=== PATIENT | male | born 1975 | race Caucasian/White ===

== ENCOUNTER 2023-05-25 00:22 | Inpatient (IN) | payer BC, OTHER ==
[2023-05-25] MEDS ORDERED: IV FLUID CONTINUATION 700 ML IV ONE (00:32)
--- NOTE | 2023-05-25 00:33 | ED ---
Medical Decision Making - Medical Decision Making This patient is 47-year-old man coming as transfer from [facility] to be a [facility] patient. The Snow Groomer was activated and the patient went directly to [facility] G[facility] without stopping for ER evaluation. Disposition Clinical Impression: Ventricular fibrillation Disposition: ADMITTED IP TO THIS HOSP Condition: Critical Is patient prescribed a controlled substance at d/c from ED?: No Referrals: None,Stated [Primary Care Provider] - 1-2 days
[2023-05-25] MEDS ORDERED: HEPARIN SODIUM 1,000 UN/ML (10ML VL) ONE (00:44)
[2023-05-25] MEDS ORDERED: fentaNYL (PF) 50 MCG/ML 2 ML AMP ONE (00:44)
[2023-05-25] MEDS ORDERED: LIDOCAINE 1% PF 10 MG/ML (5 ML AMP) SQ ONE (00:48)
[2023-05-25] MEDS ORDERED: fentaNYL (PF) 50 MCG/ML 2 ML AMP IVP ONE (00:48)
[2023-05-25] MEDS ORDERED: VERAPAMIL SYRINGE (5 MG/10 ML) INTRAARTER ONE (00:50)
[2023-05-25] MEDS ORDERED: CLOPIDOGREL 75 MG TAB ONE (00:51)
[2023-05-25] MEDS ORDERED: PRASUGREL 10 MG TAB ONE ×4 (00:53→00:56)
[2023-05-25] MEDS ORDERED: PRASUGREL 10 MG TAB PO ONE (00:58)
[2023-05-25] MEDS ORDERED: DEXTROSE 5% IN WATER 100 ML with AMIODARONE 150 MG IV ONE ×4 (01:02)
[2023-05-25] MEDS ORDERED: IOPAMIDOL-370 100ML BTL INJ ONE ×3 (01:12→02:03)
[2023-05-25] MEDS: NITROGLYCERIN 1000MCG/10ML SYRINGE INTRACORON ONE ×2 (01:45→01:56)
[2023-05-25] MEDS ORDERED: NITROGLYCERIN 1000MCG/10ML SYRINGE INTRACORON ONE (01:45)
[2023-05-25] MEDS ORDERED: TIROFIBAN 12.5MG-250ML NS 250 ML IV ONE (02:00)
[2023-05-25] MEDS ORDERED: TIROFIBAN BOLUS 12.5MG/250 ML BAG IV ONE (02:09)
[2023-05-25] MEDS ORDERED: SODIUM CHLORIDE 0.9% 1,000 ML IV ONE (02:13)
[2023-05-25] MEDS ORDERED: ATROPINE SULFATE 0.1 MG/ML 10ML SYRINGE IV PRN (02:20)
[2023-05-25] MEDS ORDERED: MAG HYDROX/AL HYDROX/SIMETH 30 ML CUP PO PRN (02:20)
[2023-05-25] MEDS ORDERED: ZOLPIDEM 5 MG TAB PO PRN (02:20)
[2023-05-25] MEDS ORDERED: NITROGLYCERIN SL TABS 0.4 MG TAB SUBLINGUAL PRN (02:20)
[2023-05-25] MEDS ORDERED: RX INFO: IV CONTRAST WAS GIVEN 1 EACH MISC MISCELLANE PRN (02:20)
--- NOTE | 2023-05-25 02:27 | P.CRDCN ---
History of Present Illness Consult date: 05/25/23 History of present illness: History of Present Illness: The patient is a 47-year-old male with no prior history of cardiac disease does not follow with a physician does not take any medications who presented to the emergency room at [facility] with symptoms of chest discomfort that started about 10 hours before, worse on presentation. On presentation he had cardiac arrest with ventricular fibrillation requiring cardioversion 2 and his EKG showed ST segment elevation inferiorly. Patient was transferred. On arrival he was still having chest and back discomfort. According to him he had no prior history of cardiac disease. He denies any PND, orthopnea or peripheral edema. He denies any prior history of syncope. He does not take any medications and smokes on a regular basis. He has a family history of premature CAD in his father Medications: None Review of Systems: Respiratory: No history of asthma, bronchitis or recent cough. GI: No nausea or vomiting . No history of peptic ulcer disease. No recent GI bleed. : No hematuria or dysuria. Nervous System: No stroke or seizure. Physical Examination: 47-year-old male, alert and oriented in mild to moderate discomfort,Blood pressure 95/70, Heart rate 70 Head: Normocephalic. Eyes: Sclerae nonicteric. Neck: Good carotid upstroke, no bruit, no jugular venous distention. Lungs: Clear to auscultation. Heart: Regular rate and rhythm, S1-S2, no S3, no rub. No murmur. Abdomen: Soft nontender, positive bowel sounds no organomegaly. Extremities: No edema, intact distal pulses. Labs: Pending EKG: Sinus mechanism with ST segment elevation in the inferior leads consistent with acute STEMI Impression: 1. Acute myocardial infarction with ST elevation inferiorly 2. Ventricle fibrillation arrest status post cardioversion 2 3. Chronic tobacco use 4. Family history of premature CAD Plan: 1. Proceed with emergent cardiac catheterization 2. The risks and the complications were discussed with the patient who was in agreement to proceed 3. Obtain an echocardiogram with Doppler 4. Depending on his progress further recommendations will be made 5. Thank you for this consult we will follow with you Medications and Allergies Allergies Allergy/AdvReac Type Severity Reaction Status Date / Time No Known Allergies Allergy Verified 05/25/23 00:31 Physical Exam Vitals: Intake and Output 05/24/23 05/24/23 05/25/23 14:59 22:59 06:59 Intake Total 803 Balance 803 Intake: IV 803 Other: Weight 104.326 kg Results Current Medications Generic Name Dose Route Start Last Admin Trade Name Freq PRN Reason Stop Dose Admin Tirofiban/Sodium Chloride 250 mls @ 18.779 mls/hr 05/25/23 02:30 Aggrastat 12.5 Mg/250 Ml Ns IV 05/25/23 14:30 .[id number] STANLEY 0.15 MCG/KG/MIN Intake and Output 05/24/23 05/24/23 05/25/23 14:59 22:59 06:59 Intake Total 803 Balance 803 Intake: IV 803 Other: Weight 104.326 kg Patient Weight 05/25/23 06:59 Weight 104.326 kg
[2023-05-25] MEDS ORDERED: SODIUM CHLORIDE 0.9% 1,000 ML in EMPTY BAG 1 BAG IV SCH (02:30)
[2023-05-25 02:36] LABS: Glucose,Whole Blood 141 mg/dL (70-110)
--- NOTE | 2023-05-25 02:38 | P.CARDCATH ---
Date of Procedure: 05/25/23 Description of Procedure: Cardiac Catheterization: The patient is a 47-year-old male who presented with an acute inferior wall myocardial infarction complicated by ventricle fibrillation requiring cardioversion. His discomfort started about 10 hours prior to his presentation. Recommendations were made regarding cardiac catheterization, the risks and the complications were discussed with the patient who is in full understanding and agreement. Procedure Description: Patient was brought to seed analysis laboratory assistant in fasting semi-sedated state after receiving Fentanyl and Benadryl achieiving moderate conscious sedated state. Using Xylocaine Anesthesia and modified Seldinger technique, a 6-[place] Citizen sheath was introduced in the right radial artery . Subsequently, selective coronary angiography was performed using a 5-[place] Citizen 3.5 bend Velasquez catheter and 6-[place] Citizen 4 bend FR guiding catheter. Multiple views of the coronary artery including hemiaxial views were obtained. The 6-[place] Citizen pigtail catheter was used to cross the aortic valve and LVEDP was calculated. PCI: After obtaining images of the right coronary artery with the guiding catheter a 0.014 BMW J-wire with the help of a fine cross microcatheter was positioned in the distal PLV. Subsequently a 3.0 x 12 mm Treck balloon was advanced into inflation at 8 miguel angel were done, subsequently a 3.5 x 23 mm Xience nilay point stent was deployed at 16 miguel angel. After removing the balloon a Theatrics eye IVUS was advanced and imaging were obtained. After removing the catheter 4.0X 20 mm NC Treck and 4.5 x 12 mm NC Treck advanced and inflations in the stents were done. Repeat IVUS was performed. At that time the wire was withdrawn and images were obtained that revealed stable successful stenting. Subsequently images of the left coronary system were performed and while performing the images he had re- elevation of his ST segment inferiorly. The guiding catheter was reintroduced and there was evidence of mild haziness prior to the stent. The 0.014 BMW J- wire was positioned distally and a 5.0 x 23 mm Xience nilay point stent was deployed proximal to the first stent at 16 miguel angel. There was evidence of slow flow distally. The patient received intracoronary nitroglycerin. Repeat IVUS imaging was performed and subsequently a 4.5 x 15 mm NC Treck balloon was advanced and inflation and the distal stent were performed. Subsequently the wire was removed and images were obtained that revealed improvement in the slow flow with some persistent slow flow in the PDA. Patient had ST segment elevation with some improvement. His chest discomfort improved. During the procedure he had an episode of ventricular tachycardia that self terminated. He received intravenous amiodarone. Following that, catheter and sheath were removed. Hemostasis was obtained with deployment of vascular band . There was no immediate complication. Patient was returned to room in stable condition. Of note, the patient received a total of 7000 units of intravenous heparin as well as intra-arterial verapamil. He received an oral loading dose of Effient. His ACT was monitored. And he was started on Aggrastat infusion. His chest discomfort improved at the end of the procedure. Findings: Left main: This is a large-size vessel, bifurcating into LAD and left circumf andrea, left main has no obstructive disease LAD: This as a large vessel that tapers down distally. After the takeoff of the first septal art instructor it has a tubular lesion of 80%. The first diagonal b ranch has a 60-70% stenosis proximally. Left circumflex: This is a nondominant vessel giving rise to 2 obtuse marginal branch. The first obtuse marginal branch has 40-50% plaque, there is of the vessel has no high-grade stenosis RCA: This is a large ectatic vessel that is totally occluded in the distal segment with no antegrade flow Left Ventriculogram: Not performed Hemodynamics: There was no gradient across the aortic valve, LVEDP was 20-25 mmHg Conclusion: 1. Acute occlusion the distal RCA with an ectatic vessel. 2. Severe disease in the mid LAD 3. And moderate disease in the OM1 4. Successful stenting of the distal RCA with reduction of stenosis from 100% to less than 5% with slow flow distal vessel with the use of intravascular ultrasound Recommendations: The patient will continue on aspirin and Effient without any interruption for one year in addition to aggressive coronary risks modifications an attempt to maintain LDL below 70 mg/dL. Depending on his progress the decision will be made about the timing to revascularize the LAD. The findings and the recommendations were discussed with the patient and the family and they were in full understanding and agreement. Duration of sedation is 80 minutes.
[2023-05-25] MEDS ORDERED: MORPHINE SULFATE 4 MG/ML SYRINGE IVP PRN (02:49)
[2023-05-25] MEDS: TIROFIBAN 12.5MG-250ML NS 250 ML IV SCH ×2 (02:57→13:26)
--- NOTE | 2023-05-25 04:19 | P.HPIM ---
History of Present Illness H&P Date: 05/25/23 Chief Complaint: STEMI 47 year old male no significant past medical history , he does not see a doctor he was with his buddies, having couple bears and smoking, when suddenly started experiencing crushing chest pain , and not looking good, so his friends took him to the hospital at [facility] for evaluation. he was shocked there for Vfib arrest , patient does not recall details. after which he was found to have STEMI, for which he was sent directly to our tender labor. patient does recall occasional chest pain radiates to his back when he exerts himself , but always goes away with rest , he never thought much about it , just thought he was working too hard. he denies any cardiac history , he does not take any medications he admits to smoking a pack a day , and drinking once a week couple beers. patient was taken to the tender labor, where he had an episode of Vtach. he was foundto have acute occlusion of the distal RCA with an ecstatic vessel, severe disease in mid LAD, moderate disease in the OM1 , he had successful stenting of the distal RCA with reduction of the stenosis from 100 to less than 5% he otherwise denies any URI symptoms , fever, chill, abd pain , GI bleeding , changes in urinary or bowel habits, denies any history of stroke or blood clots review of systems Pertinent positives as noted in HPI. All other systems were reviewed and are negative on exam Constitutional: No acute distress, conversant, pleasant Eyes: Anicteric sclerae, moist conjunctiva, Pupils equal round reactive to light ENMT: NC/AT Oropharynx clear, no erythema, or exudates Neck: Supple, no masses, or JVD No carotid bruits No thyromegaly Lungs: Clear to auscultation Clear to percussion Normal respiratory effort, no accessory muscle use Cardiovascular: Heart regular in rate and rhythm, No murmurs, gallops, or rubs No peripheral edema Abdominal: Soft Nontender, no guarding, rebound or rigidity Abdomen moving with respiration Normoactive bowel sounds No hepatomegaly, No splenomegaly No palpable mass No abdominal wall hernia noted Skin: Normal temperature, tone, texture, turgor No induration No subcutaneous nodules No rash, lesions No ulcers Extremities: No digital cyanosis No clubbing Pedal pulses intact and symmetrical Radial pulses intact and symmetrical No calf tenderness Psychiatric: Alert and oriented to person, place and time Appropriate affect fair judgement Neuro Muscles Strength 5/5 in all 4 extremities Sensation to light touch grossly present throughout Cranial nerves II-XII grossly intact Lymphatics: no palpable cervical or supraclavicular lymph nodes Past Medical History Additional Past Medical History / Comment(s): Patient does not regularly see a doctor. History of Any Multi-Drug Resistant Organisms: None Reported Past Surgical History: Heart Catheterization With Stent Additional Past Surgical History / Comment(s): x2 RCA 05/2023 Date of Last Stent Placement:: 05/25/2023 Smoking Status: Current every day smoker Past Alcohol Use History: Occasional Past Drug Use History: None Reported - Past Family History Father Family Medical History: Coronary Artery Disease (CAD), Myocardial Infarction (AL) Medications and Allergies Allergies Allergy/AdvReac Type Severity Reaction Status Date / Time No Known Allergies Allergy Verified 05/25/23 00:31 Physical Exam Vitals: Vital Signs Temp Pulse Resp BP Pulse Ox 05/25/23 03:00 92 16 102/79 100 05/25/23 02:35 98.4 F 89 19 102/79 97 Intake and Output 05/24/23 05/24/23 05/25/23 14:59 22:59 06:59 Intake Total 921.8 Balance 921.8 Intake: IV 921.8 Sodium Chloride 0.9% 1, 100 000 ml In Empty Bag 1 bag @ 1 ML/KG/HR 104.326 mls /hr IV .[id number] STANLEY Rx#: [id number] Tirofiban 12.5MG-250Ml Ns 18.8 250 ml @ 0.15 MCG/KG/MIN 18.779 mls/hr IV . [id number] STANLEY Rx#:[id number] Other: # Voids 0 Weight 104.326 kg Results Labs: Abnormal Lab Results - Last 24 Hours (Table) 05/25/23 Range/Units 02:35 POC Glucose (mg/dL) 141 H (70-110) mg/dL Thrombosis Risk Factor Assmnt - Choose All That Apply Any of the Below Risk Factors Present?: Yes Each Factor Represents 1 point: Acute AL, Age 41-60 years, Obesity (BMI >25) Thrombosis Risk Factor Assessment Total Risk Factor Score: 3 Thrombosis Risk Factor Assessment Level: Moderate Risk Assessment and Plan Assessment: 47 year old male with no significant past medical history , he does not ssee a doctor , went to [facility] for chest pain , experienced 2 episodes of Vfib requiring defibrilation , after which found to have STEMI I discussed the case with ED doc and I accepted the admission for inferior STEMI taken directly to tender labor. with anticipated length of stay > 2 mid nights inferior STEMI Vfib cardiac arrest s/p defibrilation at the other facility [facility] cardiology following EKG STEMI in inferior leads s/p left heart cath stent deployed in RCA continue to have chest pain, cardiology might consider Mid LAD PCI aspirin and efient per cardiology recommendation for 1 year Atorvastatin 80 mg po daily morphine 4 mg IVP q4hr check ECHOcardiogram Aggrastat per cardiology no beta cristin ordered at this time hypokalemia repeat level , and replace as needed K 2.7 at the other facility check A1c , lipid panel , BMP, Mg full code DVT PPX heparin sc tid protonix 40 mg po daily
[2023-05-25 04:50] LABS: African American GFR (CKD) >90 (>60 ml/min/1.73 sqM); Anion Gap 10 mmol/L; Blood Urea Nitrogen 20 mg/dL (9-20); Calcium 8.5 mg/dL (8.4-10.2); Carbon Dioxide 21 mmol/L (22-30); Chloride 105 mmol/L (98-107); Glucose 123 mg/dL (74-99); Magnesium 2.4 mg/dL (1.6-2.3); Non-African American GFR(CKD) 79 (>60 ml/min/1.73 sqM); Potassium 4.2 mmol/L (3.5-5.1); Sodium 136 mmol/L (137-145)
[2023-05-25] MEDS: MORPHINE SULFATE 4 MG/ML SYRINGE IVP PRN ×3 (06:40→09:21)
[2023-05-25] MEDS: PANTOPRAZOLE 40 MG TABLET PO SCH (06:41)
[2023-05-25] MEDS: HEPARIN SODIUM,PORCINE 5,000 UNIT/ML 1 ML VIAL SQ SCH ×3 (08:51→23:42)
[2023-05-25] MEDS: ASPIRIN 81 MG PO SCH (08:51)
[2023-05-25 08:52] LABS: HGB 16.3 gm/dL (13.0-17.5); MCH 30.9 pg (25.0-35.0); MCHC 33.2 g/dL (31.0-37.0); Mean Platelet Volume 7.3; Platelet Count 225 k/uL (150-450); RBC 5.27 m/uL (4.30-5.90); RDW 13.1 % (11.5-15.5); WBC 17.6 k/uL (3.8-10.6)
[2023-05-25] MEDS ORDERED: METOPROLOL TARTRATE 25 MG TAB PO SCH (09:00)
[2023-05-25 09:14] LABS: ALT 97 U/L (4-49); AST 262 U/L (17-59); Alkaline Phosphatase 55 U/L (38-126)
--- NOTE | 2023-05-25 09:41 | P.PN ---
Subjective Progress Note Date: 05/25/23 PROGRESS NOTE The patient is a 47-year-old male with no prior history of cardiac disease does not follow with a physician does not take any medications who presented to the emergency room at [facility] with symptoms of chest discomfort that started about 10 hours before, worse on presentation. On presentation he had cardiac arrest with ventricular fibrillation requiring cardioversion 2 and his EKG showed ST segment elevation inferiorly. Patient was transferred. On arrival he was still having chest and back discomfort. According to him he had no prior history of cardiac disease. He denies any PND, orthopnea or peripheral edema. He denies any prior history of syncope. He does not take any medications and smokes on a regular basis. He has a family history of premature CAD in his father The patient underwent cardiac catheterization early this morning and was found to have an acutely occluded RCA with significant disease in the LAD. The RCA was ectatic. He underwent stenting of his vessel. He had evidence of slow flow in the PDA. He is having no chest discomfort but continues to have mild back discomfort. Hemodynamically he is stable with short burst of nonsustained VT. His ST segment elevation improved. There is no nausea or vomiting. His breathing is stable. Medications: Aspirin, Lipitor 80 mg daily, Effient 10 mg daily PHYSICAL EXAMINATION: Blood pressure 138/80 heart rate 89 LUNGS: Clear to auscultation HEART: Regular rate and rhythm, S1, S2. No S3. No systolic murmur ABDOMEN: Soft, nontender, no organomegaly EXTREMETIES: No edema, right radial pulse intact LAB: Troponin 5.6 and 15.2. Potassium 4.2. Hemoglobin 16.3. EKG shows evidence of inferior wall myocardial infarction, his ST elevation improved IMPRESSION: 1. Status post inferior wall myocardial infarction status post stenting with slow flow in the PDA 2. History of smoking 3. Family history of premature CAD 4. Ventricle fibrillation on presentation PLAN: 1. Add beta cristin 2. Continue Aggrastat for 12 hours 3. Echocardiogram with Doppler 4. Follow renal functions 5. Depending on his progress further recommendations will be made. Objective - Vital Signs Vital signs: Vital Signs Temp 98.2 F 05/25/23 08:00 Pulse 89 05/25/23 09:00 Resp 10 L 05/25/23 09:00 BP 133/88 05/25/23 09:00 Pulse Ox 97 05/25/23 09:00 FiO2 Intake & Output 05/24/23 05/25/23 05/25/23 18:59 06:59 18:59 Intake Total 1278.2 318.8 Output Total 0 Balance 1278.2 318.8 Weight 104.326 kg Intake: IV 1278.2 318.8 Sodium Chloride 0.9% 1, 400 300 000 ml In Empty Bag 1 bag @ 1 ML/KG/HR 104.326 mls /hr IV .[id number] STANLEY Rx#: [id number] Tirofiban 12.5MG-250Ml Ns 75.2 18.8 250 ml @ 0.15 MCG/KG/MIN 18.779 mls/hr IV . [id number] STANLEY Rx#:[id number] Output: Urine 0 Other: Voiding Method Urinal # Voids 0 0 - Labs CBC & Chem 7: 05/25/23 08:39 05/25/23 03:12 Labs: Abnormal Lab Results - Last 24 Hours (Table) 05/25/23 05/25/23 05/25/23 Range/Units 02:35 03:12 03:12 WBC (3.8-10.6) k/uL Sodium 136 L (137-145) mmol/L Carbon Dioxide 21 L (22-30) mmol/L Glucose 123 H (74-99) mg/dL POC Glucose (mg/dL) 141 H (70-110) mg/dL Magnesium 2.4 H (1.6-2.3) mg/dL AST (17-59) U/L ALT (4-49) U/L Troponin I 5.600 H* (0.000-0.034) ng/mL 05/25/23 05/25/23 05/25/23 Range/Units 05:10 08:39 08:39 WBC 17.6 H (3.8-10.6) k/uL Sodium (137-145) mmol/L Carbon Dioxide (22-30) mmol/L Glucose (74-99) mg/dL POC Glucose (mg/dL) (70-110) mg/dL Magnesium (1.6-2.3) mg/dL AST 262 H (17-59) U/L ALT 97 H (4-49) U/L Troponin I 15.200 H* (0.000-0.034) ng/mL
[2023-05-25 10:16] LABS: Chol/HDL Ratio 5.21 Ratio; LDL Cholesterol,Calculated 142.3 mg/dL (0.0-131.0); VLDL Calculation 16.92 mg/dL (5.00-40.00)
--- NOTE | 2023-05-25 11:20 | P.PN ---
Subjective Progress Note Date: 05/25/23 Patient is a 47-year-old male with history of coronary artery disease status post stenting to the RCA, ongoing tobacco abuse who was transferred from [facility] to the Shop Fitter for ST segment elevated myocardial infarction. On record review patient had an episode of ventricular fibrillation requiring defibrillation x 2. Patient underwent cardiac catheterization on arrival to our facility which showed an acute occlusion of the distal RCA with severe disease in the LAD, moderate disease in OM1 and he underwent successful stenting of the distal RCA with reduction of stenosis from 100% to less than 5%. Depending on patient's progress they will determine when to revascularize the LAD. He continues to have some chest pain after stenting. Patient seen and examined at bedside. He conitnues to have some chest pain that is worse with movement as well as back pain, no nausea, no light headedness, no dizziness. No other complaints at this time. All questions answered. Reviewed tele with nursing and several rune of NSVT noted overnight. Vital signs reviewed General: Nontoxic, no distress, appears at stated age Cardiovascular: S1S2 reg, no murmur, positive posterior tibial pulse bilateral, Lungs: CTA bilateral, no rhonchi, no rales, no accessory muscle use Abdominal: Soft, nontender to palpation, no guarding, no appreciable organomegaly Ext: No gross muscle atrophy, no edema b/l lower extremities, no contractures Neuro: CN II-XI grossly intact, no focal neuro deficits Psych: Alert, oriented, appropriate affect Assessment/Plan: Acute ST segment elevated myocardial infarction status post stenting to the RCA Coronary artery disease with severe disease in the LAD V fib arrest s/p defib X 2 Ongoing tobacco abuse NSVT Transaminitis, suspect due to v-fib arrest. -Aspirin 81 mg, Lipitor 80 mg daily, Effient 10 mg daily - add metoprolol 25 mg PO BID -Await further cardiology recommendations -Await echocardiogram-follow blood pressures -Await A1c and lipid panel Imaging: none new Data Review: Labs reviewed from today include basic metabolic profile and troponin which are remarkable for sodium 136, carbon dioxide 21 DVT prophylaxis: Heparin Anticipated discharge date: pending clinical course Anticipated discharge place: pending clinical course This dictation was prepared using [employer] voice recognition software. Though every attempt is made to correct errors during dictation some may still exist. Objective - Vital Signs Vital signs: Vital Signs Temp 98.4 F 12/10/23 02:35 Pulse 90 05/25/23 07:00 Resp 10 L 05/25/23 07:00 BP 122/87 05/25/23 07:00 Pulse Ox 96 05/25/23 07:00 FiO2 Intake & Output 05/24/23 05/25/23 05/25/23 18:59 06:59 18:59 Intake Total 1278.2 118.8 Balance 1278.2 118.8 Weight 104.326 kg Intake: IV 1278.2 118.8 Sodium Chloride 0.9% 1, 400 100 000 ml In Empty Bag 1 bag @ 1 ML/KG/HR 104.326 mls /hr IV .[id number] STALNEY Rx#: [id number] Tirofiban 12.5MG-250Ml Ns 75.2 18.8 250 ml @ 0.15 MCG/KG/MIN 18.779 mls/hr IV . [id number] STANLEY Rx#:[id number] Other: Voiding Method Urinal # Voids 0 0 - Labs CBC & Chem 7: 05/25/23 08:39 05/25/23 03:12 Labs: Abnormal Lab Results - Last 24 Hours (Table) 05/25/23 05/25/23 05/25/23 Range/Units 02:35 03:12 03:12 Sodium 136 L (137-145) mmol/L Carbon Dioxide 21 L (22-30) mmol/L Glucose 123 H (74-99) mg/dL POC Glucose (mg/dL) 141 H (70-110) mg/dL Magnesium 2.4 H (1.6-2.3) mg/dL Troponin I 5.600 H* (0.000-0.034) ng/mL 05/25/23 Range/Units 05:10 Sodium (137-145) mmol/L Carbon Dioxide (22-30) mmol/L Glucose (74-99) mg/dL POC Glucose (mg/dL) (70-110) mg/dL Magnesium (1.6-2.3) mg/dL Troponin I 15.200 H* (0.000-0.034) ng/mL
[2023-05-25] MEDS: METOPROLOL TARTRATE 25 MG TAB PO SCH ×2 (15:49→21:08)
[2023-05-25] MEDS ORDERED: ACETAMINOPHEN TAB 325 MG TAB PO PRN (17:16)
[2023-05-25] MEDS ORDERED: HYDROcodone/APAP 5-325MG 1 EACH TAB PO PRN (17:16)
[2023-05-25] MEDS ORDERED: ALBUTEROL NEBULIZED 2.5 MG/3 ML INHALATION PRN (17:16)
[2023-05-25] MEDS ORDERED: ONDANSETRON 4 MG/2 ML VIAL IVP PRN (17:16)
[2023-05-25] MEDS ORDERED: MELATONIN 5 MG TABLET PO PRN (17:16)
[2023-05-25] MEDS: ATORVASTATIN 80 MG TAB PO SCH (20:58)
[2023-05-26 04:50] LABS: HCT 47.2 % (39.0-53.0); HGB 15.9 gm/dL (13.0-17.5); MCH 30.8 pg (25.0-35.0); MCHC 33.7 g/dL (31.0-37.0); MCV 91.4 fL (80.0-100.0); Platelet Count 219 k/uL (150-450); RBC 5.16 m/uL (4.30-5.90); RDW 13.2 % (11.5-15.5); WBC 22.6 k/uL (3.8-10.6)
[2023-05-26 05:02] LABS: African American GFR (CKD) >90 (>60 ml/min/1.73 sqM); Albumin 3.6 g/dL (3.5-5.0); Blood Urea Nitrogen 21 mg/dL (9-20); Calcium 8.7 mg/dL (8.4-10.2); Carbon Dioxide 24 mmol/L (22-30); Glucose 104 mg/dL (74-99); Non-African American GFR(CKD) >90 (>60 ml/min/1.73 sqM); Potassium 4.2 mmol/L (3.5-5.1); Total Bilirubin 1.5 mg/dL (0.2-1.3)
[2023-05-26 05:08] LABS: ALT 139 U/L (4-49); AST 569 U/L (17-59); Alkaline Phosphatase 57 U/L (38-126); Anion Gap 5 mmol/L; Chloride 104 mmol/L (98-107); Sodium 133 mmol/L (137-145)
[2023-05-26] MEDS: HEPARIN SODIUM,PORCINE 5,000 UNIT/ML 1 ML VIAL SQ SCH ×2 (08:33→15:40)
[2023-05-26] MEDS: PANTOPRAZOLE 40 MG TABLET PO SCH (08:33)
[2023-05-26] MEDS: ASPIRIN 81 MG PO SCH (08:33)
[2023-05-26] MEDS: METOPROLOL TARTRATE 25 MG TAB PO SCH ×3 (08:33→21:10)
[2023-05-26] MEDS: PRASUGREL 10 MG TAB PO SCH (08:34)
[2023-05-26] MEDS: NICOTINE 21MG/24HR PATCH TRANSDERM SCH (10:58)
[2023-05-26 11:28] VITALS: BMI 31.4
--- NOTE | 2023-05-26 15:14 | US ---
EXAMINATION TYPE: US liver DATE OF EXAM: 05/26/2023 COMPARISON: NONE CLINICAL INDICATION: Male, 47 years old with history of transaminitis TECHNIQUE: Multiple sonographic images of the right upper quadrant are obtained. FINDINGS: EXAM MEASUREMENTS: Liver Length: 19.3 cm Gallbladder Wall: 0.42 cm CBD: Obscured Right Kidney: 12.7 x 6.4 x 5.4 cm BELT AND LINK SHOP SUPERVISOR NOTES: Limited due to overlying bowel gas. Pancreas: Not well seen due to body habitus and bowel gas. Liver: *Enlarged with increased echogenicity. Heterogeneous. No focal lesion seen. Gallbladder: Wall appears thickened. No abnormal distention, surrounding fluid, or shadowing calculi . Evidence for sonographic Manzo's sign: No CBD: Unable to adequately assess. Right Kidney: No hydronephrosis. School Guidance Counselor notes: Incidental finding- appearance of right pleural effusion in RUQ/liver imaging. IMPRESSION: 1. Mild hepatomegaly at 19.3 cm with at least moderate hepatic steatosis. 2. Gallbladder wall thickening is nonspecific. It may be seen with fluid overload states/third spacin g. This is favored given the partially visualized right pleural effusion. Clinically correlate. No ga llstones are seen. 3. The bile duct and pancreas are obscured and not adequately assessed.
--- NOTE | 2023-05-26 16:32 | P.PN ---
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 On record review patient had an episode of ventricular fibrillation requiring defibrillation x 2. Patient underwent cardiac catheterization on arrival to our facility which showed an acute occlusion of the distal RCA with s evere disease in the LAD, moderate disease in OM1 and he underwent successful stenting of the distal RCA with reduction of stenosis from 100% to less than 5%. Depending on patient's progress they will determine when to revascularize the LAD. He continues to have some chest pain after stenting. Patient seen and examined at bedside. He is no longer having chest or back pain. He has no shortness of breath or nausea. he is feeling some nicotine withdrawal. Vital signs reviewed General: Nontoxic, no distress, appears at stated age Cardiovascular: S1S2 reg, no murmur, positive posterior tibial pulse bilateral, Lungs: CTA bilateral, no rhonchi, no rales, no accessory muscle use Abdominal: Soft, nontender to palpation, no guarding, no appreciable organomegaly Ext: No gross muscle atrophy, no edema b/l lower extremities, no contractures Neuro: CN II-XI grossly intact, no focal neuro deficits Psych: Alert, oriented, appropriate affect Assessment/Plan: Acute ST segment elevated myocardial infarction status post stenting to the RCA Coronary artery disease with severe disease in the LAD V fib arrest s/p defib X 2 Ongoing tobacco abuse NSVT Dyslipidemia Transaminitis, suspect due to v-fib arrest. -Aspirin 81 mg, Lipitor 80 mg daily, Effient 10 mg daily, metoprolol 25 mg PO TID -Await further cardiology recommendations -Await echocardiogram -follow blood pressures Leukocytosis, suspect reactive - follow CBC Transaminits - check liver ultrasound Imaging: none new Data Review: Labs reviewed from today include CBC and complete metabolic profile which are remarkable for WBC 22.6 sodium 133, carbon dioxide 21, T bili 1.5, AST 569, ALT 139 LDL-142, A1C 5.5 DVT prophylaxis: Heparin Anticipated discharge date: in 24-[address]: home This dictation was prepared using Local[employer] voice recognition software. Though every attempt is made to correct errors during dictation some may still exist. Objective - Vital Signs Vital signs: Vital Signs Temp 98.4 F 05/26/23 16:00 Pulse 83 05/26/23 16:00 Resp 18 05/26/23 16:00 BP 112/80 05/26/23 16:00 Pulse Ox 95 05/26/23 16:00 FiO2 Intake & Output 05/25/23 05/26/23 05/26/23 18:59 06:59 18:59 Intake Total 363.8 5 1200 Output Total 550 0 0 Balance -186.2 5 1200 Weight 108 kg 108 kg Intake: IV 363.8 5 Sodium Chloride 0.9% 1, 345 5 000 ml In Empty Bag 1 bag @ 1 ML/KG/HR 104.326 mls /hr IV .[id number] [facility] Rx#: [id number] Tirofiban 12.5MG-250Ml Ns 18.8 250 ml @ 0.15 MCG/KG/MIN 18.779 mls/hr IV . [id number] [facility] Rx#:[id number] Oral 1200 Output: Urine 550 0 0 Other: Voiding Method Toilet Toilet Toilet Urinal Urinal # Voids 1 0 1 # Emeses 1 - Labs CBC & Chem 7: 05/26/23 04:09 05/26/23 04:09 Labs: Abnormal Lab Results - Last 24 Hours (Table) 05/26/23 05/26/23 Range/Units 04:09 04:09 WBC 22.6 H (3.8-10.6) k/uL Sodium 133 L (137-145) mmol/L BUN 21 H (9-20) mg/dL Glucose 104 H (74-99) mg/dL Total Bilirubin 1.5 H (0.2-1.3) mg/dL AST 569 H (17-59) U/L ALT 139 H (4-49) U/L Total Protein 6.0 L (6.3-8.2) g/dL
--- NOTE | 2023-05-26 18:34 | P.PN ---
Subjective History of Present Illness: The patient is a 47-year-old male with no prior history of cardiac disease does not follow with a physician does not take any medications who presented to the emergency room at [facility] with symptoms of chest discomfort that started about 10 hours before, worse on presentation. On presentation he had cardiac arrest with ventricular fibrillation requiring cardioversion 2 [address]KG showed ST segment elevation inferiorly. Patient was transferred. On arrival he was still having chest and back discomfort. According to him he had no prior history of cardiac disease. He denies any PND, orthopnea or peripheral edema. He denies any prior history of syncope. He does not take any medications and smokes on a regular basis. He has a family history of premature CAD in his father Medications: None 05/26 Patient seen and examined. Patient underwent heart catheterization yesterday with stenting of the RCA with residual LAD disease. Echocardiogram performed however has not been read yet. He denies any chest pain or pressure. Physical Examination: Vitals reviewed Head: Normocephalic. Eyes: Sclerae nonicteric. Neck: Good carotid upstroke, no bruit, no jugular venous distention. Lungs: Clear to auscultation. Heart: Regular rate and rhythm, S1-S2, no S3, no rub. No murmur. Abdomen: Soft nontender, positive bowel sounds no organomegaly. Extremities: No edema, intact distal pulses. Impression: 1. Acute myocardial infarction with ST elevation inferiorly 2. Ventricle fibrillation arrest status post cardioversion 2 3. Chronic tobacco use 4. Family history of premature CAD 5. CAD status post PCI of the RCA with residual LAD disease Plan: Continue dual antiplatelets for 12 months. Staged PCI of LAD likely is not outpatient next 1-2 weeks. Continue beta cristin and monitor for any arrhythmias. Await 2-D echo read. Possible discharge in next 24 hours. Stable for transfer from ICU Objective - Vital Signs Vital signs: Vital Signs Temp 98.4 F 05/26/23 16:00 Pulse 79 05/26/23 18:00 Resp 20 05/26/23 18:00 BP 120/92 05/26/23 17:00 Pulse Ox 95 05/26/23 18:00 FiO2 Intake & Output 05/25/23 05/26/23 05/26/23 18:59 06:59 18:59 Intake Total 363.8 5 1450 Output Total 550 0 0 Balance -186.2 5 1450 Weight 108 kg 108 kg Intake: IV 363.8 5 Sodium Chloride 0.9% 1, 345 5 000 ml In Empty Bag 1 bag @ 1 ML/KG/HR 104.326 mls /hr IV .[id number] [facility] Rx#: [id number] Tirofiban 12.5MG-250Ml Ns 18.8 250 ml @ 0.15 MCG/KG/MIN 18.779 mls/hr IV . [id number] [facility] Rx#:[id number] Oral 1450 Output: Urine 550 0 0 Other: Voiding Method Toilet Toilet Toilet Urinal Urinal # Voids 1 0 1 # Emeses 1 - Labs CBC & Chem 7: 05/26/23 04:09 05/26/23 04:09 Labs: Abnormal Lab Results - Last 24 Hours (Table) 05/26/23 05/26/23 Range/Units 04:09 04:09 WBC 22.6 H (3.8-10.6) k/uL Sodium 133 L (137-145) mmol/L BUN 21 H (9-20) mg/dL Glucose 104 H (74-99) mg/dL Total Bilirubin 1.5 H (0.2-1.3) mg/dL AST 569 H (17-59) U/L ALT 139 H (4-49) U/L Total Protein 6.0 L (6.3-8.2) g/dL
[2023-05-26] MEDS ORDERED: METOPROLOL TARTRATE 12.5 MG TAB PO STA (20:28)
[2023-05-26] MEDS: ATORVASTATIN 80 MG TAB PO SCH (21:18)
[2023-05-27] MEDS: HEPARIN SODIUM,PORCINE 5,000 UNIT/ML 1 ML VIAL SQ SCH ×2 (00:36→08:22)
[2023-05-27 04:47] LABS: HCT 43.5 % (39.0-53.0); HGB 14.7 gm/dL (13.0-17.5); MCH 30.9 pg (25.0-35.0); MCHC 33.7 g/dL (31.0-37.0); MCV 91.7 fL (80.0-100.0); Mean Platelet Volume 7.7; Platelet Count 178 k/uL (150-450); RBC 4.75 m/uL (4.30-5.90); RDW 12.7 % (11.5-15.5)
[2023-05-27 05:02] LABS: ALT 101 U/L (4-49); AST 234 U/L (17-59); African American GFR (CKD) >90 (>60 ml/min/1.73 sqM); Albumin 3.3 g/dL (3.5-5.0); Alkaline Phosphatase 52 U/L (38-126); Anion Gap 7 mmol/L; Blood Urea Nitrogen 18 mg/dL (9-20); Calcium 8.7 mg/dL (8.4-10.2); Carbon Dioxide 24 mmol/L (22-30); Chloride 103 mmol/L (98-107); Glucose 97 mg/dL (74-99); Non-African American GFR(CKD) >90 (>60 ml/min/1.73 sqM); Potassium 3.9 mmol/L (3.5-5.1); Sodium 134 mmol/L (137-145); Total Bilirubin 1.6 mg/dL (0.2-1.3); Total Protein 5.8 g/dL (6.3-8.2)
[2023-05-27] MEDS: METOPROLOL TARTRATE 25 MG TAB PO SCH (08:21)
[2023-05-27] MEDS: PANTOPRAZOLE 40 MG TABLET PO SCH (08:21)
[2023-05-27] MEDS: ASPIRIN 81 MG PO SCH (08:21)
[2023-05-27] MEDS: PRASUGREL 10 MG TAB PO SCH (08:22)
[2023-05-27] MEDS: NICOTINE 21MG/24HR PATCH TRANSDERM SCH (08:22)
--- NOTE | 2023-05-27 10:31 | CA ---
Transthoracic Echo Report Name: Rico Burden Age: 47 Gender: M : 1975 Exam Date: 05/26/2023 10:06 Exam Location: [place] [facility] Ht (in): 73 Wt (lb): 230 Ordering Physician: Ibis Haney MD ([id number]) Attending/Referring Phys: Service Unit Operator Odilon Ramirez Procedure CPT: Indications: stemi Cardiac Hx: Technical Quality: Fair Contrast 1: Total Dose (mL): Contrast 2: Total Dose (mL): MEASUREMENTS (Male / Female) Normal Values 2D ECHO LV Diastolic Diameter PLAX 5.3 cm 4.2 - 5.9 / 3.9 - 5.3 cm LV Systolic Diameter PLAX 4.3 cm IVS Diastolic Thickness 1.2 cm 0.6 - 1.0 / 0.6 - 0.9 cm LVPW Diastolic Thickness 1.1 cm 0.6 - 1.0 / 0.6 - 0.9 cm LV Relative Wall Thickness 0.4 RV Internal Dim ED PLAX 2.9 cm LVOT Diameter 2.3 cm Aortic Root Diameter 2.6 cm LA Systolic Diameter LX 2.5 cm 3.0 - 4.0 / 2.7 - 3.8 cm LV Diastolic Volume MOD BP 74.2 cm??? 67 - 155 / 56 - 104 cm??? LV Systolic Volume MOD BP 47.2 cm??? - 58 / 19 - 49 cm??? LV Ejection Fraction MOD BP 36.4 % >= 55 % LV Cardiac Index MOD BP 1037.0 cm???/min???m??? LV Diastolic Volume MOD 4C 72.5 cm??? LV Systolic Volume MOD 4C 45.9 cm??? LV Ejection Fraction MOD 4C 36.7 % LV Cardiac Index MOD 4C 1022.1 cm???/min???m??? LV Diastolic Length 4C 7.9 cm LV Systolic Length 4C 7.7 cm LV Diastolic Volume MOD 2C 74.2 cm??? LV Systolic Volume MOD 2C 47.4 cm??? LV Ejection Fraction MOD 2C 36.1 % LV Cardiac Index MOD 2C 1029.8 cm???/min???m??? LV Diastolic Length 2C 8.1 cm LV Systolic Length 2C 7.4 cm LA Volume 34.7 cm??? 18 - 58 / 22 - 52 cm??? LA Volume Index 14.8 cm???/m??? 16 - 28 cm???/m??? DOPPLER AV Peak Velocity 131.5 cm/s AV Peak Gradient 6.9 mmHg LVOT Peak Velocity 95.5 cm/s LVOT Peak Gradient 3.7 mmHg LVOT Velocity Time Integral 15.1 cm LVOT Stroke Volume 65.3 cm??? LVOT Stroke Volume Index 28.6 ml/m??? LVOT Cardiac Index 2508.3 cm???/min???m??? AV Area Cont Eq pk 3.1 cm??? MV Peak Velocity 86.2 cm/s MV Peak Gradient 3.0 mmHg MV Mean Velocity 53.5 cm/s MV Mean Gradient 1.3 mmHg MV Velocity Time Integral 23.8 cm Mitral E Point Velocity 85.8 cm/s Mitral A Point Velocity 69.4 cm/s Mitral E to A Ratio 1.2 MV Deceleration Time 98.1 ms MV E' Velocity 8.5 cm/s Mitral E to MV E' Ratio 10.0 TR Peak Velocity 220.4 cm/s TR Peak Gradient 19.4 mmHg Right Ventricular Systolic Press 24.4 mmHg PV Peak Velocity 95.6 cm/s PV Peak Gradient 3.7 mmHg FINDINGS Left Ventricle Normal LV cavity size. Mild concentric LVH. Moderately reduced global LV systolic function with EF estimated at 35-40%. Basal to mid inferior wall hypokinesia. Right Ventricle Normal right ventricular size. Right Atrium Normal right atrial size. Left Atrium Normal left atrial size. LA volume index= 15ml/m2 Mitral Valve Structurally normal mitral valve. No mitral regurgitation. Aortic Valve Trileaflet aortic valve. No aortic stenosis. No aortic regurgitation. Tricuspid Valve Structurally normal tricuspid valve. Trace TR. Pulmonic Valve Pulmonic valve not well visualized. No pulmonic regurgitation. Pericardium Normal pericardium. Aorta Normal size aortic root. CONCLUSIONS Normal LV cavity size. Mild concentric LVH. EF estimated at 35-40%. Basal to mid inferior wall hypokinesia. No significant diastolic dysfunction RVSP estimated at 25 mmHg Previewed by: Dr Bhanu Garcia (Electronically Signed) Final Date: 27 May 2023 10:30
[2023-05-27 11:56] VITALS: BP 96/70; PULSE 81; RESP 16; TEMP 97.6
--- NOTE | 2023-05-27 13:44 | P.PN ---
Subjective History of Present Illness: The patient is a 47-year-old male with no prior history of cardiac disease does not follow with a physician does not take any medications who presented to the emergency room at [facility] with symptoms of chest discomfort that started about 10 hours before, worse on presentation. On presentation he had cardiac arrest with ventricular fibrillation requiring cardioversion 2 and his EKG showed ST segment elevation inferiorly. Patient was transferred. On arrival he was still having chest and back discomfort. According to him he had no prior history of cardiac disease. He denies any PND, orthopnea or peripheral edema. He denies any prior history of syncope. He does not take any medications and smokes on a regular basis. He has a family history of premature CAD in his father Medications: None 05/26 Patient seen and examined. Patient underwent heart catheterization yesterday with stenting of the RCA with residual LAD disease. Echocardiogram performed however has not been read yet. He denies any chest pain or pressure. 05/27 Patient seen and examined. Patient denies any chest pain or pressure. No lightheadedness or dizziness. Blood pressures have been borderline in the 90s over 50s. Echo shows left ventricular EF 35-40% with inferior hypokinesis Physical Examination: Vitals reviewed Head: Normocephalic. Eyes: Sclerae nonicteric. Neck: Good carotid upstroke, no bruit, no jugular venous distention. Lungs: Clear to auscultation. Heart: Regular rate and rhythm, S1-S2, no S3, no rub. No murmur. Abdomen: Soft nontender, positive bowel sounds no organomegaly. Extremities: No edema, intact distal pulses. Impression: 1. Acute myocardial infarction with ST elevation inferiorly 2. Ventricle fibrillation arrest status post cardioversion 2 3. Chronic tobacco use 4. Family history of premature CAD 5. CAD status post PCI of the RCA with residual LAD disease 6. 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 Staged PCI of LAD likely is not outpatient next 1-2 weeks. Continue beta cristin and monitor for any arrhythmias. Continue with heart failure regimen with low-dose lisinopril and metoprolol however blood pressures have been borderline and doubt we will be able to tolerate addition of Aldactone at this time. Appears stable for discharge home with outpatient follow-up Objective - Vital Signs Vital signs: Vital Signs Temp 97.6 F 05/27/23 11:37 Pulse 81 05/27/23 11:39 Resp 16 05/27/23 11:37 BP 96/70 05/27/23 11:39 Pulse Ox 95 05/27/23 11:37 FiO2 Intake & Output 05/26/23 05/27/23 05/27/23 18:59 06:59 18:59 Intake Total 1450 570 Output Total 0 3 1 Balance 1450 567 -1 Weight 108 kg 105.3 kg Intake: Oral 1450 570 Output: Urine 0 3 1 Other: Voiding Method Toilet Toilet Toilet Urinal Urinal Urinal # Voids 1 1 1 # Emeses 1 - Labs CBC & Chem 7: 05/27/23 03:56 05/27/23 03:56 Labs: Abnormal Lab Results - Last 24 Hours (Table) 05/27/23 05/27/23 Range/Units 03:56 03:56 WBC 18.0 H (3.8-10.6) k/uL Sodium 134 L (137-145) mmol/L Total Bilirubin 1.6 H (0.2-1.3) mg/dL AST 234 H (17-59) U/L ALT 101 H (4-49) U/L Total Protein 5.8 L (6.3-8.2) g/dL Albumin 3.3 L (3.5-5.0) g/dL
--- NOTE | 2023-05-27 14:30 | P.DS ---
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 Do you want consulting provider notified?: Already Contacted 05/25/23 02:20 Consult Physician Routine Consulting Provider: [facility] Consult Reason/Comments: Post Interventional Patient Do you want consulting provider notified?: Already Contacted Primary care physician: Stated None Hospital Course: Discharge Diagnosis: Acute ST segment elevated myocardial infarction status post stenting to the RCA Coronary artery disease with severe disease in the LAD Ischemic cardiomyopathy wiht EF 35-40% V fib arrest s/p defib X 2 Ongoing tobacco abuse NSVT Dyslipidemia Transaminitis, related to v. fib arrest. 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 On record review patient had an episode of ventricular fibrillation requiring defibrillation x 2. Patient underwent cardiac catheterization on arrival to our facility which showed an acute occlusion of the distal RCA with severe disease in the LAD, moderate disease in OM1 and he underwent successful stenting of the distal RCA with reduction of stenosis from 100% to less than 5%, he will also need a procedure on the LAD. He underwent echocardiogram which showed ejection fraction 35 to 40% with basal to mid inferior wall hypokinesis. He underwent liver ultrasound which demonstrated mild hepatomegaly with moderate hepatic steatosis and gallbladder wall thickening. He continues to do well. He had no recurrent significant arrhythmias. He was determined stable for discharge home. Follow-up: Staged PCI of the LAD likely as outpatient in the next 1 to 2 weeks. Continue dual antiplatelet therapy for 12 months. Continue with low-dose lisinopril and metoprolol borderline blood pressures have limited the availability of adding Aldactone. Patient seen and examined at bedside. He denies any chest pain, shortness of breath, nausea, vomiting. He would like to go home. Vital signs reviewed and stable. General: Nontoxic, no distress, appears at stated age Cardiovascular: S1S2 reg, no murmur, positive posterior tibial pulse bilateral, Lungs: CTA bilateral, no rhonchi, no rales, no accessory muscle use Abdominal: Soft, nontender to palpation, no guarding, no appreciable organomegaly Ext: No gross muscle atrophy, no edema b/l lower extremities, no contractures Neuro: CN II-XI grossly intact, no focal neuro deficits Psych: Alert, oriented, appropriate affect A total of 35 minutes of time were spent preparing this complex discharge summary. Patient was discharged on 05/27/23. This dictation was prepared using [employer] voice recognition software. Though every attempt is made to correct errors during dictation some may still exist. Patient Condition at Discharge: Stable Plan - Discharge Summary Discharge Rx Participant: No New Discharge Prescriptions: New Aspirin 81 mg PO DAILY tab Prasugrel [Effient] 10 mg PO DAILY #30 tab Atorvastatin [Lipitor] 80 mg PO HS #30 tab Metoprolol Tartrate [Lopressor] 25 mg PO TID #90 tab lisinopriL [Zestril] 2.5 mg PO BID #60 tab Discharge Medication List Aspirin 81 mg PO DAILY tab 05/27/23 [Rx] Atorvastatin [Lipitor] 80 mg PO HS #30 tab 05/27/23 [Rx] Metoprolol Tartrate [Lopressor] 25 mg PO TID #90 tab 05/27/23 [Rx] Prasugrel [Effient] 10 mg PO DAILY #30 tab 05/27/23 [Rx] lisinopriL [Zestril] 2.5 mg PO BID #60 tab 05/27/23 [Rx] Follow up Appointment(s)/Referral(s): Ibis Haney MD [Emergency Provider] - 1 Week None,Stated [Primary Care Provider] - 1-2 days Dante Peña MD [STAFF PHYSICIAN] - 1 Week (will be new patient) Patient Instructions/Handouts: Heart Attack (DC), How to Stop Smoking (DC) Activity/Diet/Wound Care/Special Instructions: Activity: Keep moving, do not do anything that brings your heart rate greater than 100 or causes sweating Diet: Heart healthy Special Instructions: Off work until seen by cardiology Return if you develop chest pain, shortness of breath, palpitations, dizziness Discharge/Stand Alone Forms: Work/School Release / Restrict Discharge Disposition: HOME SELF-CARE
== END 2023-05-27 15:00 | disposition home or self-care (01) | DRG 322 ==
LOC: EC 00:22 → 2SICU 00:25
PROVIDERS: ADMIT Internal Medicine; ATTEND Internal Medicine
PROC: 4A023N7 Measurement of Cardiac Sampling and Pressure, Left Heart, Percutaneous Approach (ICD-10-PCS; principal; 2023-05-25 00:27)
PROC: 027035Z Dilation of Coronary Artery, One Artery with Two Drug-eluting Intraluminal Devices, Percutaneous Approach (ICD-10-PCS; principal; 2023-05-25 00:27)
PROC: B2111ZZ Fluoroscopy of Multiple Coronary Arteries using Low Osmolar Contrast (ICD-10-PCS; principal; 2023-05-25 00:27)
PROC: B240ZZ3 Ultrasonography of Single Coronary Artery, Intravascular (ICD-10-PCS; principal; 2023-05-25 00:27)
DX: I21.19 ST elevation (STEMI) myocardial infarction involving other coronary artery of inferior wall (principal); I47.20 Ventricular tachycardia, unspecified; K76.0 Fatty (change of) liver, not elsewhere classified; Z28.310 Unvaccinated for COVID-19; R16.0 Hepatomegaly, not elsewhere classified; I25.10 Atherosclerotic heart disease of native coronary artery without angina pectoris; I25.5 Ischemic cardiomyopathy; D72.829 Elevated white blood cell count, unspecified; E87.6 Hypokalemia; E78.5 Hyperlipidemia, unspecified; I25.2 Old myocardial infarction; F17.210 Nicotine dependence, cigarettes, uncomplicated; Z95.5 Presence of coronary angioplasty implant and graft; Z82.49 Family history of ischemic heart disease and other diseases of the circulatory system
CPT/HCPCS: 76705; 80048; 80053; 80061; 83036; 83735; 84075; 84450; 84460; 84484; 85027; 92978; 93306; 93458; 99285

== ENCOUNTER → 2023-06-17 | Outpatient (CLI) | payer BC, OTHER ==
[2023-06-17 19:57] LABS: HCT 52.5 % (39.6-50.0); HGB 17.3 g/dL (13.0-17.0); MCH 29.9 pg (27.0-32.0); MCV 90.7 FL (80.0-97.0); Mean Platelet Volume 9.9 FL (9.5-12.2); NRBC Per 100 WBC 0 X 10*3/uL (0.00-0.01); Platelet Count 315 X 10*3/uL (140-440); RBC 5.79 X 10*6/uL (4.40-5.60); RDW 12.4 % (11.5-14.5); WBC 11.82 X 10*3/uL (4.50-10.00)
[2023-06-17 20:17] LABS: Carbon Dioxide 25.5 mmol/L (21.6-31.8); Chloride 104 mmol/L (96-109); Potassium 4.4 mmol/L (3.5-5.5); Sodium 140 mmol/L (135-145)
== END | disposition home or self-care (01) ==
LOC: LABWHC1 12:48
PROVIDERS: ATTEND Internal Medicine Interventional Cardiology
DX: Z01.812 Encounter for preprocedural laboratory examination (principal); I25.5 Ischemic cardiomyopathy; E78.2 Mixed hyperlipidemia
CPT/HCPCS: 36415; 80051; 82565; 84520; 85027

== ENCOUNTER 2023-06-26 10:44 | Day surgery (SDC) | payer BC, OTHER ==
[~2023-06-26 10:44] MED LIST: ALPRAZolam 0.25 MG TAB PO PRN; ALPRAZolam 0.5 MG TAB PO PRN; ASPIRIN 325 MG TAB PO STA; HEPARIN SODIUM,PORCINE (1 ML) 2,500 UNIT in SODIUM CHLORIDE 0.9% 250 ML IRRIGATION PRN; HEPARIN SODIUM,PORCINE 10,000 UNIT in SODIUM CHLORIDE 0.9% 1,000 ML IRRIGATION PRN; NITROGLYCERIN SL TABS 0.4 MG TAB SUBLINGUAL PRN; SODIUM CHLORIDE 0.9% 1,000 ML in EMPTY BAG 1 BAG IV SCH
[2023-06-26] MEDS ORDERED: SODIUM CHLORIDE 0.9% 1,000 ML IV ONE (11:07)
[2023-06-26] MEDS ORDERED: fentaNYL (PF) 50 MCG/ML 2 ML AMP ONE (11:58)
[2023-06-26] MEDS ORDERED: LIDOCAINE 1% INJ 10MG/ML (20 ML MDV) ONE (11:58)
[2023-06-26] MEDS ORDERED: HEPARIN SODIUM 1,000 UN/ML (10ML VL) ONE (11:58)
[2023-06-26] MEDS ORDERED: VERAPAMIL 2.5 MG/ML 2 ML AMP ONE (11:58)
[2023-06-26] MEDS ORDERED: fentaNYL (PF) 50 MCG/ML 2 ML AMP IVP ONE (12:26)
[2023-06-26] MEDS ORDERED: LIDOCAINE 1% INJ 10MG/ML (20 ML MDV) SQ ONE (12:27)
[2023-06-26] MEDS ORDERED: VERAPAMIL SYRINGE (5 MG/10 ML) INTRAARTER ONE (12:29)
[2023-06-26] MEDS ORDERED: MIDAZOLAM 2 MG/2 ML VIAL IVP ONE (12:31)
[2023-06-26] MEDS ORDERED: HEPARIN SODIUM 1,000 UN/ML (10ML VL) IV ONE (12:33)
[2023-06-26] MEDS ORDERED: IOPAMIDOL-370 100ML BTL INJ ONE ×2 (12:48→13:11)
[2023-06-26] MEDS ORDERED: ATROPINE SULFATE 0.1 MG/ML 10ML SYRINGE IV PRN (13:28)
[2023-06-26] MEDS ORDERED: MAG HYDROX/AL HYDROX/SIMETH 30 ML CUP PO PRN (13:28)
[2023-06-26] MEDS ORDERED: NITROGLYCERIN SL TABS 0.4 MG TAB SUBLINGUAL PRN (13:28)
[2023-06-26] MEDS ORDERED: ZOLPIDEM 5 MG TAB PO PRN (13:28)
[2023-06-26] MEDS ORDERED: RX INFO: IV CONTRAST WAS GIVEN 1 EACH MISC MISCELLANE PRN (13:28)
[2023-06-26] MEDS ORDERED: SODIUM CHLORIDE 0.9% 1,000 ML in EMPTY BAG 1 BAG IV SCH (13:30)
--- NOTE | 2023-06-26 13:39 | P.CARDCATH ---
Date of Procedure: 06/26/23 Description of Procedure: Cardiac Catheterization: The patient is a 47-year-old male who presented 4 weeks ago with an acute in 4 wall myocardial infarction an acutely occluded RCA. He underwent stenting of that vessel. He was found to have significant disease in the LAD. He is admitted today to undergo reevaluation of his LAD and RCA. Recommendations were made regarding cardiac catheterization, the risks and the complications were discussed with the patient who is in full understanding and agreement. Procedure Description: Patient was brought to laboratory courier in fasting semi-sedated state after receiving Fentanyl and Benadryl achieiving moderate conscious sedated state. Using Xylocaine Anesthesia and modified Seldinger technique, a 6-Icelandic sheath was introduced in the right radial artery . Subsequently, selective coronary angiography was performed using a 5-Icelandic 3.5 bend right Velasquez catheter and 6-Icelandic CLS 3.5 guiding catheter. Multiple views of the coronary artery including hemiaxial views were obtained. PCI: Using the CLS 3.5 guiding catheter the left main was cannulated and subsequently 0.014 BMW J-wire was positioned in the distal LAD. Subsequently a Classkick eye IVUS catheter was introduced and images were obtained. Subsequently a 3.0 x 28 mm Xience nilay point stent was deployed at 16 miguel angel, after removing the balloon repeat IVUS imaging was performed. A 3.0 x 20 mm NC Treck balloon was advanced and one inflation to 10 miguel angel in the distal segment of the stent was performed. Subsequently a 2.75 x 15 mm Xience nilay point was deployed at 14 miguel angel distal to the first one after removing the balloon a 4.0 X 12 mm NC Treck was positioned in the proximal segment of the stent and one inflation at 10 miguel angel was done. Repeat IVUS imaging was obtained. Subsequently the wire was and images were obtained. Following that, catheter and sheath were removed. Hemostasis was ob tained with deployment of vascular band . There was no immediate complication. Patient was returned to room in stable condition. Of note, the patient received a total of 7000 units of intravenous heparin as well as intra-arterial verapamil. His ACT was monitored. He was continued on Effient. He had no significant EKG changes or chest discomfort with the inflations. Findings: Left main: This is a large size vessel, bifurcating into LAD and left circumflex, left main has no evidence of high-grade stenosis LAD: This is a large size vessel, reaching to the apex, the LAD after the takeoff of the first septal blueprint reproducer has tandem lesion of 80%. The first diagonal branch is chronically occluded with slow flow. Left circumflex: This is a nondominant vessel giving rise to 2 obtuse margin bra nch. The first obtuse marginal branch has 20-30% plaque, the rest of the vessel has no high-grade stenosis RCA: This is a large dominant vessel, bifurcating distally into PDA and PLV. The mid segment of the RCA has intimal disease of 20-40%. The stented segment in the mid and distal RCA is patent. There is good flow in the PDA and PLV. There is retrograde collaterals from the RCA to work the diagonal branch. Left Ventriculogram: Not performed Conclusion: 1. Patent stent to the RCA with no evidence of stent thrombosis 2. Severe stenosis in the mid LAD 3. Chronically occluded first diagonal branch with collaterals from the right coronary system 4. Successful stenting of the mid RCA was reduction of stenosis from 80% to less than 5% with intravascular ultrasound imaging Recommendations: The patient will continue on aspirin and Effient without any interruption for a total of one year in addition to aggressive risk modification, attempting to maintain LDL below 70 mg/dL. The findings and the recommendations were discussed with the patient and the family and they were in full understanding and agreement. Duration of sedation is 45 minutes.
[2023-06-26] MEDS: METOPROLOL TARTRATE 25 MG TAB PO SCH ×2 (16:05→19:46)
[2023-06-27 05:59] LABS: Basophils # (A) 0.1 k/uL (0-0.2); Basophils % (A) 1 %; Eosinophils # (A) 1.2 k/uL (0-0.7); Eosinophils % (A) 10 %; HCT 48.4 % (39.0-53.0); Lymphocytes # (A) 3.8 k/uL (1.0-4.8); Lymphocytes % (A) 32 %; MCH 30.4 pg (25.0-35.0); MCV 92.2 fL (80.0-100.0); Mean Platelet Volume 7.3; Monocytes # (A) 0.6 k/uL (0-1.0); Monocytes % (A) 5 %; Neutrophils # (A) 6.1 k/uL (1.3-7.7); Neutrophils % (A) 51 %; Platelet Count 203 k/uL (150-450); RBC 5.26 m/uL (4.30-5.90); RDW 12.5 % (11.5-15.5)
[2023-06-27 06:08] LABS: African American GFR (CKD) 90 (>60 ml/min/1.73 sqM); Anion Gap 8 mmol/L; Blood Urea Nitrogen 17 mg/dL (9-20); Carbon Dioxide 26 mmol/L (22-30); Chloride 106 mmol/L (98-107); Glucose 91 mg/dL (74-99); Non-African American GFR(CKD) 78 (>60 ml/min/1.73 sqM); Potassium 4.2 mmol/L (3.5-5.1); Sodium 140 mmol/L (137-145)
--- NOTE | 2023-06-27 07:21 | P.PN ---
Subjective Progress Note Date: 06/27/23 PROGRESS NOTE The patient is a 47-year-old male with a history of coronary disease, presented 4 weeks ago with an acute inferior wall myocardial infarction, underwent stenting of his RCA and was found to have significant obstructive disease in the LAD. He underwent cardiac catheterization yesterday and stenting of the LAD. He is doing well this morning, denies any chest discomfort, dizziness or palpit ations. He continues to be in sinus mechanism. Medications: Aspirin, Effient 10 mg daily, lisinopril 2.5 mg twice a day, Lipitor 80 mg daily, metoprolol 25 mg 3 times a day. PHYSICAL EXAMINATION: Blood pressure 101/60 heart rate 60 LUNGS: Clear to auscultation HEART: Regular rate and rhythm, S1, S2. No S3. No systolic murmur ABDOMEN: Soft, nontender, no organomegaly EXTREMETIES: No edema, right radial pulse intact LAB: EKG shows sinus mechanism with evidence of inferior myocardial infarction, potassium 4.2, BUN 17, creatinine 1.1 IMPRESSION: 1. Status post stenting of the LAD 2. Status post stenting of the RCA in the setting of myocardial infarction 3. Ischemic cardiomyopathy 4. Hyperlipidemia PLAN: 1. Continue present therapy 2. Increase physical activity 3. Discharged home today 4. And follow-up in one week Objective - Vital Signs Vital signs: Vital Signs Temp 97.7 F 06/27/23 02:00 Pulse 62 06/27/23 02:00 Resp 16 06/27/23 02:00 BP 87/56 06/27/23 02:00 Pulse Ox 100 06/27/23 02:00 FiO2 Intake & Output 06/26/23 06/27/23 06/27/23 18:59 06:59 18:59 Intake Total 590 Balance 590 Weight 107.7 kg Intake: IV 350 Oral 240 Other: # Voids 1 3 - Labs CBC & Chem 7: 06/27/23 05:43 06/27/23 05:43 Labs: Abnormal Lab Results - Last 24 Hours (Table) 06/27/23 Range/Units 05:43 WBC 12.0 H (3.8-10.6) k/uL Eosinophils # 1.2 H (0-0.7) k/uL
[2023-06-27 07:25] VITALS: BP 88/51; PULSE 79; RESP 19; TEMP 98
[2023-06-27] MEDS ORDERED: PRASUGREL 10 MG TAB PO SCH (09:00)
[2023-06-27] MEDS ORDERED: ATORVASTATIN 80 MG TAB PO SCH (09:00)
[2023-06-27] MEDS ORDERED: ASPIRIN 81 MG PO SCH (09:00)
[2023-06-27] MEDS: METOPROLOL TARTRATE 25 MG TAB PO SCH (09:25)
== END 2023-06-27 12:24 | disposition home or self-care (01) ==
LOC: CATHCVL 10:44 → 6NMEDSUR 14:14 → CATHCVL 06-27 12:24
PROVIDERS: ATTEND Internal Medicine Interventional Cardiology
DX: I25.10 Atherosclerotic heart disease of native coronary artery without angina pectoris (principal); I25.5 Ischemic cardiomyopathy; I25.2 Old myocardial infarction; E78.5 Hyperlipidemia, unspecified; Z79.02 Long term (current) use of antithrombotics/antiplatelets; Z79.82 Long term (current) use of aspirin; Z79.899 Other long term (current) drug therapy; Z95.5 Presence of coronary angioplasty implant and graft
CPT/HCPCS: 92978; 93454; 80048; 85025; C9600; C1769 ×3; C1887; C1894; C1753; C1874 ×2; C1725; J2250; J2001; J3010; J1644; Q9967

== ENCOUNTER → 2023-08-20 | Outpatient (CLI) | payer BC, OTHER ==
[2023-08-20 17:57] LABS: ALT 111 U/L (10-49); AST 60 U/L (14-35); Chol/HDL Ratio 3.61 Ratio; LDL Cholesterol,Calculated 75.6 mg/dL (0.0-131.0); VLDL Calculation 16.22 mg/dL (5.00-40.00)
== END | disposition home or self-care (01) ==
LOC: LABWHC1 12:23
PROVIDERS: ATTEND Internal Medicine Interventional Cardiology
DX: E78.2 Mixed hyperlipidemia (principal)
CPT/HCPCS: 36415; 80061; 84450; 84460

== ENCOUNTER → 2023-12-11 | Outpatient (CLI) | payer BC, OTHER ==
[2023-12-11 15:05] LABS: ALT 61 U/L (10-49); AST 38 U/L (14-35); Chol/HDL Ratio 3.28 Ratio; Prostate Specific Antigen 0.33 ng/mL (0.000-3.500); T4, Free (Free Thyroxine) 1.17 ng/dL (0.80-1.80); VLDL Calculation 19.96 mg/dL (5.00-40.00)
== END | disposition home or self-care (01) ==
LOC: LABWHC1 11:21
PROVIDERS: ATTEND Internal Medicine Interventional Cardiology
DX: Z00.00 Encounter for general adult medical examination without abnormal findings (principal); E78.2 Mixed hyperlipidemia
CPT/HCPCS: 36415; 80061; 84153; 84439; 84443; 84450; 84460

== ENCOUNTER → 2024-06-18 | Outpatient (CLI) | payer OTHER ==
[2024-06-18 15:46] LABS: ALT 62 U/L (10-49); AST 35 U/L (14-35); Albumin 4.6 g/dL (3.8-4.9); Albumin/Globulin Ratio 1.84 Ratio (1.60-3.17); Alkaline Phosphatase 64 U/L (41-126); BUN/Creat Ratio 16.64 Ratio (12.00-20.00); Blood Urea Nitrogen 18.3 mg/dL (9.0-27.0); Calcium 9.5 mg/dL (8.7-10.3); Carbon Dioxide 26.1 mmol/L (21.6-31.8); Chloride 107 mmol/L (96-109); Globulin 2.5 g/dL (1.6-3.3); Glucose 107 mg/dL (70-110); LDL Cholesterol,Calculated 83.1 mg/dL (0.0-131.0); Potassium 4.4 mmol/L (3.5-5.5); Sodium 142 mmol/L (135-145); Total Bilirubin 0.9 mg/dL (0.3-1.2); Total Protein 7.1 g/dL (6.2-8.2)
== END | disposition home or self-care (01) ==
LOC: LABWHC1 10:16
PROVIDERS: ATTEND Nurse Practitioner Adult Health
DX: I10 Essential (primary) hypertension (principal); E78.2 Mixed hyperlipidemia
CPT/HCPCS: 36415; 80053; 80061

== ENCOUNTER → 2024-12-21 | Outpatient (CLI) | payer OTHER ==
[2024-12-21 15:36] LABS: ALT 64 U/L (10-49); AST 40 U/L (14-35); Cholesterol 122.00 mg/dL (0.00-200.00); HDL Cholesterol 42.60 mg/dL (40.00-60.00); LDL Cholesterol,Calculated 60.6 mg/dL (0.0-131.0); Triglycerides 93.80 mg/dL (0.00-149.00); VLDL Calculation 18.76 mg/dL (5.00-40.00)
== END | disposition home or self-care (01) ==
LOC: LABWHC1 09:19
PROVIDERS: ATTEND Nurse Practitioner Adult Health
DX: E78.2 Mixed hyperlipidemia (principal)
CPT/HCPCS: 36415; 80061; 84450; 84460